=== PATIENT | female | born 1985 | race Two or more races ===

== ENCOUNTER 2017-09-18 06:00 | Day surgery (SDC) | payer OTHER ==
[~2017-09-18 06:00] MED LIST: AVALIDE 300-121 EACH PO; LIPITOR20 MG PO
== END 2017-09-18 16:35 | disposition home or self-care (01) ==
LOC: CIR.AMB 06:00
DX: N93.8 Other specified abnormal uterine and vaginal bleeding (principal); N72 Inflammatory disease of cervix uteri

== ENCOUNTER 2020-02-03 06:05 | Day surgery (SDC) | payer OTHER ==
[~2020-02-03 06:05] MED LIST changes: +ALLEGRA-D 12 H1 EACH PO; +NEXIUM 24HR20 MG PO
== END 2020-02-03 20:55 | disposition home or self-care (01) ==
LOC: CIR.AMB 06:05
PROVIDERS: ATTEND Obstetrics & Gynecology
DX: N84.0 Polyp of corpus uteri (principal); Z20.828 Contact with and (suspected) exposure to other viral communicable diseases

== ENCOUNTER 2020-03-10 11:06 | Emergency (ER) | payer OTHER ==
[~2020-03-10] VITALS: Ht 157.5 cm; Wt 99.8 kg
== END 2020-03-10 15:41 | disposition home or self-care (01) ==
LOC: ER 11:06
DX: N93.8 Other specified abnormal uterine and vaginal bleeding (principal); Z03.818 Encounter for observation for suspected exposure to other biological agents ruled out